=== PATIENT | female | born 1945 | race Caucasian/White ===

== ENCOUNTER 2019-09-18 08:46 | Outpatient (CLI) | payer MEDICARE, SELFPAY ==
--- NOTE | 2019-09-18 | DI.RAD_ITS ---
EXAM: XR HUMERUS RT CLINICAL HISTORY: RT ARM PAIN, M79.601 TECHNIQUE: COMPARISON: CR XR SHOULDER RT COMPLETE 2+V from 09/18/2019 FINDINGS: Five views of the shoulder and two views of the humerus were obtained. There are mild hypertrophic d egenerative changes of the acromioclavicular joint. The greater tuberosity of the humerus consistent with prior rotator cuff repair. There are moderate marginal osteophytes of humeral head and glenoid . There is probable mild narrowing of the glenohumeral cartilaginous joint space. Radiographs humerus show no significant additional findings. IMPRESSION: Degenerative changes glenohumeral and AC joints.
== END 2019-09-18 09:06 ==
PROVIDERS: PCP Nurse Practitioner Family; Visit Provider Family Medicine
DX: M79.601 Pain in right arm (principal); M25.511 Pain in right shoulder; M19.011 Primary osteoarthritis, right shoulder
CPT/HCPCS: 73030; 73060

== ENCOUNTER → 2019-10-06 10:02 | Outpatient (BNVA) | payer MEDICARE, SELFPAY | PROVIDERS: PCP Nurse Practitioner Family; Referring Provider Family Medicine; Visit Provider Student in an Organized Health Care Education/Training Program | DX: M75.21 Bicipital tendinitis, right shoulder (principal); M65.321 Trigger finger, right index finger; M18.12 Unilateral primary osteoarthritis of first carpometacarpal joint, left hand; E11.9 Type 2 diabetes mellitus without complications; Z79.4 Long term (current) use of insulin | CPT/HCPCS: 99204 ==

== ENCOUNTER 2019-11-19 14:24 | Outpatient (REF) | payer MEDICARE, SELFPAY ==
[2019-11-19 20:26] LABS: Abs Immature Grans 0.01 10^3/uL (0.0-0.06); Absolute Basophil Count 0.08 10^3/uL (0.0-0.2); Absolute Lymphocyte Count 2.25 10^3/uL (1.2-3.4); Absolute Monocyte Count 0.55 10^3/uL (0.1-0.8); Absolute Neutrophil Count 3.81 10^3/uL (1.2-6.7); Basophils % 1.1; Eosinophils % 4.3; HCT 43.2 % (36.0-46.0); HGB 14.1 g/dL (11.2-15.7); Immature Grans % 0.1; Lymphocytes % 32.1; MCHC 32.6 % (32.0-36.0); MCV 88.9 fL (80-95); MPV 12.5 fL (8.0-11.0); Monocytes % 7.9; Neutrophils % 54.5; Nucleated RBC 0 %; Platelet Count 246 10^3/uL (130-400); RBC 4.86 10^6/uL (3.93-5.22); RDW 13.6 % (11.7-14.6); RDW-SD 44.5 fL
[2019-11-19 21:22] LABS: ALT 23 U/L (14-59); AST 10 U/L (15-37); Albumin 3.7 g/dL (3.4-5.0); Alkaline Phosphatase 80 U/L (46-116); Anion Gap 6.3 mmol/L (3-11); BUN 19 mg/dL (7-18); Bilirubin, Total 0.3 mg/dL (0.2-1.0); CO2 26.7 mmol/L (21.0-32.0); CREATININE 0.72 mg/dL (0.55-1.02); Calcium 8.9 mg/dL (8.5-10.1); Chloride 103 mmol/L (98-107); Glucose 164 mg/dL (74-106); Potassium 4.3 mmol/L (3.5-5.1); Sodium 136 mmol/L (136-145); Total Protein 6.7 g/dL (6.4-8.2); Vitamin B12 1690 pg/mL (193-986)
[2019-11-19 21:42] LABS: Hemoglobin A1C 7.4 % (3.8-5.6)
== END 2019-11-19 14:44 ==
LOC: NCHCN 14:24
PROVIDERS: PCP Family Medicine; Visit Provider Family Medicine
DX: E11.9 Type 2 diabetes mellitus without complications (principal); E53.8 Deficiency of other specified B group vitamins; D72.9 Disorder of white blood cells, unspecified
CPT/HCPCS: 80053; 82607; 83036; 85025

== ENCOUNTER 2021-03-26 14:21 | Emergency (ER) | payer MEDICARE, SELFPAY ==
[2021-03-26 14:31] VITALS: BP 145/87; PULSE 82; RESP 16; TEMP 36.4; O2SAT 96
--- NOTE | 2021-03-26 14:45 | DI.RAD_ITS ---
Exam(s) XR RIBS LT W PA LAT CHEST EXAM: XR RIBS LT W PA LAT CHEST CLINICAL HISTORY: Fall, R/O Fracture TECHNIQUE: COMPARISON: CR XR SHOULDER RT COMPLETE 2+V from 09/18/2019 FINDINGS: There is opacification of the right thoracic apex, pleural versus pulmonary in nature, with a fairly smooth contour. There are vascular clips at the right hilum. There is elevation of the diaphragm on the right. No prior chest films available for comparison but on a prior shoulder film of August 2019 these findings were not present. Please correlate regarding surgical history. A Port-A-Cath is note d on the left. The 3rd rib on the right appears to been resected. Partial resection of the right 4th rib also noted . No pneumothorax or pleural effusion, no acute rib fracture identified. IMPRESSION: Presumed post surgical changes right lung, please correlate with history rib regarding apparent lobec roman. No evidence of acute left rib fracture. RADIATION DOSE DELIVERED: Total DLP
--- NOTE | 2021-03-26 15:00 | ED.GENADUL_ITS ---
Discharge Plan Disposition Patient Disposition: HOME Condition: Stable Discharge Details Clinical Impression: Fracture of rib of left side Primary Care Provider: Jasmyn Thompson ED Provider: Angie Reynoso Home Meds and New Rx's Prescriptions: New oxycodone 5 mg tablet 5 mg PO Q4H PRN (Reason: pain) Qty: 10 RF: 0 Continued primidone 50 mg tablet 50 mg PO HS RF: 0 ibuprofen 800 mg tablet 800 mg PO PRNRF: 0 clonazepam 0.5 mg tablet 0.5 mg PO HS RF: 0 psyllium Packet 1 packet PO RF: 0 pantoprazole 40 mg tablet,delayed release (DR/EC) 40 mg PO DAILY RF: 0 docusate sodium [Colace] 100 mg Capsule 100 mg PO BID RF: 0 Acidophilus Capsule 1 cap PO DAILY RF: 0 multivitamin Capsule 1 cap PO DAILY RF: 0 escitalopram oxalate 10 mg tablet 20 mg PO DAILY RF: 0 rosuvastatin 5 mg tablet 10 mg PO HS RF: 0 pregabalin 100 mg capsule 100 mg PO BID RF: 0 Januvia 100 mg tablet 100 mg PO DAILY AM RF: 0 omega-3 fatty acids-fish oil 684-1,200 mg Capsule,Delayed Release(Dr/Ec) 1,280 cap PO BID RF: 0 Discharge Instructions Instructions: Rib Fracture (ED) Additional Instructions: The x-rays today are resulted as no rib fracture however I am concerned that there is a rib fracture to one of the ribs on the left side. Use the incentive spirometer as directed to prevent pneumonia. Take pain medications as needed. Return to the ER for any worsening shortness of breath, worsening pain, productive cough, fever or any concerns. Please discuss with your primary care doctor and to be re X-rayed to confirm the abscence of rib fractures. Referrals: Jasmyn Thompson [Primary Care Provider] - 5 days Discharge Data Discharge Date/Time-TO BE ENTERED AT DEPARTURE: 03/26/21 16:43 Medical Decision Making 75-year-old female presents to the ER with chief complaint of left rib pain status post the splint follow-up the kitchen yesterday. Patient landed on her left side and is complaining of left rib pain. She denies any abdominal pain, no productive cough no fever no shortness of breath or any other associated symptoms. She denies hitting her head no loss of consciousness. Has been taking Tylenol and ibuprofen at home prior to arrival. Clear lung sounds auscultated bilaterally. No ecchymosis or contusion noted to the chest wall. Rib series x-ray ordered. FINDINGS: There is opacification of the right thoracic apex, pleural versus pulmonary in nature, with a fairly smooth contour. There are vascular clips at the right hilum. There is elevation of the diaphragm on the right. No prior chest films available for comparison but on a prior shoulder film of August 2019 these findings were not present. Please correlate regarding surgical history. A Port-A-Cath is noted on the left. The 3rd rib on the right appears to been resected. Partial resection of the right 4th rib also noted. No pneumothorax or pleural effusion, no acute rib fracture identified. IMPRESSION: Presumed post surgical changes right lung, please correlate with history rib regarding apparent lobectomy. No evidence of acute left rib fracture. Discussed X-Ray results with Patient and daughter. Prescription given for Oxycodone 5mg and instructed on use. Discussed strict return instructions. A disc was given to patient as she is flying back in a couple of days to [place]. HPI General Mode of arrival: wheelchair . Date/Time Provider Initiated Documentation: 03/26/21 14:34 . Limitations to Documentation: no limitations . Information obtained by: patient, RN notes reviewed and old records reviewed . HPI Narrative: 75-year-old female presents to the ER with chief complaint of left rib pain status post the splint follow-up the kitchen yesterday. Patient landed on her left side and is complaining of left rib pain. She denies any abdominal pain, no productive cough no fever no shortness of breath or any other associated symptoms. She denies hitting her head no loss of consciousness. Has been taking Tylenol and ibuprofen at home prior to arrival. Clear lung sounds auscultated bilaterally. No ecchymosis or contusion noted to the chest wall. Related Data Home Medications Medication Instructions Recorded Confirmed Acidophilus 1 cap PO DAILY 03/26/21 03/26/21 Januvia 100 mg PO DAILY AM 03/26/21 03/26/21 clonazepam 0.5 mg PO HS 03/26/21 03/26/21 docusate sodium [Colace] 100 mg PO BID 03/26/21 03/26/21 escitalopram oxalate 20 mg PO DAILY 03/26/21 03/26/21 ibuprofen 800 mg PO PRN 03/26/21 multivitamin 1 cap PO DAILY 03/26/21 03/26/21 omega-3 fatty acids-fish oil 1,280 cap PO BID 03/26/21 03/26/21 oxycodone 5 mg PO Q4H PRN #10 tab 03/26/21 pantoprazole 40 mg PO DAILY 03/26/21 03/26/21 pregabalin 100 mg PO BID 03/26/21 03/26/21 primidone 50 mg PO HS 03/26/21 03/26/21 psyllium 1 packet PO 03/26/21 rosuvastatin 10 mg PO HS 03/26/21 03/26/21 Previous Rx's Medication Instructions Recorded oxycodone 5 mg PO Q4H PRN #10 tab 03/26/21 Allergies Allergy/AdvReac Type Severity Reaction Status Date / Time No Known Allergies Allergy Verified 10/06/19 10:06 General Stated Complaint: Chest/Rib ELEN: 2 Review of Systems All systems reviewed & are unremarkable except as noted in HPI and below PFSH All Active Problems (Updated 03/26/21 @ 16:17 by Angie Reynoso) Fracture of rib of left side (Acute) Tendinitis of long head of biceps brachii of right shoulder (Acute) Trigger finger, right index finger (Acute) Arthritis of carpometacarpal (CMC) joint of left thumb (Acute) Medical History (Updated 03/26/21 @ 16:17 by Angie Reynoso) Anxiety and depression Basal cell adenocarcinoma Diabetes Essential palatal tremor GERD (gastroesophageal reflux disease) Vertigo Social History Smoking/Tobacco Use Status: Former Tobacco Use Quit Date: 03/26/79 Smoking risk assessment performed?: Yes Alcohol Intake: current Alcohol Intake frequency: 0-2 drinks per day Substance use type: does not use Current gender identity: female Do you feel safe at home: Yes Do you feel safe in your relationship?: Yes Exam Narrative Exam Narrative: Constitutional: Alert and oriented x3. Appears stated age. Normal body habitus. Head: Normocephalic, no trauma. Eyes: Pupils PERRL, Red reflex noted, EOM's intact. Eyelids symmetrical without lesions, discharge, or swelling. ENT: Bilateral TM's WNL, External ear normal to inspection, no mastoid TTP, swelling, or erythema, Nasal turbinates WNL, no nasal discharge. Normal dentition, Posterior pharynx WNL, no exudate. Chest: RRR, Normal S1, S2, distal pulses intact. Resp: Lungs clear to auscultation bilaterally, no wheezes, rales, or rhonchi. Abdomen: Soft, non-distended, Normoactive bowel sounds all 4 quads. Musculoskeletal: Normal gait, 5/5 strength to all four extremities. Skin: No suspicious rashes or lesions. Capillary refill less than 2 sec. Neurologic: Cranial nerves II-XII intact. Alert and oriented x 3. Motor: No deficits noted. Sensory: Intact bilaterally all 4 extremities. Reflexes: DTR's intact bilaterally.. Hematologic/Lymphatic: No ecchymosis, no lymphadenopathy. Course Vital Signs Vital signs: Vital Signs Temperature 36.4 C L 03/26/21 14:31 Pulse 82 03/26/21 14:31 Respiratory Rate 16 03/26/21 14:31 Blood Pressure 145/87 H 03/26/21 14:31 Pulse Oximetry 16 L 03/26/21 14:31 Temperature 36.4 C L 03/26/21 14:31 Temperature Source Temporal Artery Scan 03/26/21 14:31 Pulse 82 03/26/21 14:31 Respiratory Rate 16 03/26/21 14:31 Respiratory Effort Non-Labored 03/26/21 14:44 Respiratory Depth Normal 03/26/21 14:44 Respiratory Pattern Normal 03/26/21 14:44 Blood Pressure 145/87 H 03/26/21 14:31 Pulse Oximetry 16 L 03/26/21 14:31 Oxygen Delivery Method Room Air 03/26/21 14:31 Oxygen Flow Rate 0 03/26/21 14:31 Pain Level 0 03/26/21 14:44 PAWSS Have you Been Recently Intoxicated or Drunk Within the Last 30 days?: No Have you Ever Experienced Previous Episodes of Alcohol Withdrawal?: No Have you ever Experienced Withdrawal Seizures?: No Have you ever Experienced Delirium Tremens(DT)s?: No Have you ever undergone Alcohol Rehabilitation Treatment (i.e, inpt ot outpatient treatment programs)?: No Have you ever Experienced Blackouts?: No Have you ever Combined Alcohol with other Downers within the last 90 days?: No Have you ever Combined Alcohol with any other Substance of Abuse during the last 90 days?: No Positive Blood Alcohol level on Presentation? [PCS.BAL]: No Evidence of Increased Autonomic Activity (i.e. HR>120, tremor, sweating, agit ation, nausea)?: No Result: 0
[2021-03-26] MEDS: oxyCODONE 5 MG TAB PO (16:37)
[2021-03-26 16:41] VITALS: BP 136/80; PULSE 80; RESP 16; TEMP 36.6; O2SAT 96
== END 2021-03-26 16:43 | disposition home or self-care (01) ==
PROVIDERS: Emergency Provider Registered Nurse Emergency; PCP Family Medicine
DX: S22.32XA Fracture of one rib, left side, initial encounter for closed fracture (principal); W01.0XXA Fall on same level from slipping, tripping and stumbling without subsequent striking against object, initial encounter
CPT/HCPCS: 99283; 71046; 71100